=== PATIENT | male | born 1975 | race Two or more races ===

== ENCOUNTER 2019-07-06 20:34 | Inpatient (IN) | payer BC, OTHER ==
[~2019-07-06] VITALS: Ht 188 cm; Wt 124.6 kg
[2019-07-07 13:48] VITALS: BP 119/74
== END 2019-07-07 18:26 | disposition home or self-care (01) | DRG 313 ==
LOC: ED 23:20 → EDIP 23:50 → 4EST 07-07 01:18
PROVIDERS: ADMIT Internal Medicine; ATTEND Internal Medicine
DX: R07.89 Other chest pain (principal); N17.9 Acute kidney failure, unspecified; I45.9 Conduction disorder, unspecified; E11.9 Type 2 diabetes mellitus without complications; I10 Essential (primary) hypertension; E78.5 Hyperlipidemia, unspecified; F17.200 Nicotine dependence, unspecified, uncomplicated; Z79.82 Long term (current) use of aspirin
CPT/HCPCS: 36415; 71045; 80048; 80061; 82040; 83036; 84484; 85025; 93005; 93017; 93306; 99285; J7030